=== PATIENT | female | born 1985 | race African-American/Black ===

== ENCOUNTER 2018-02-12 15:09 | Emergency (ER) | payer MEDICAID, OTHER ==
[~2018-02-12] VITALS: Ht 162.6 cm; Wt 70.0 kg
[2018-02-12] MEDS ORDERED: ONDANSETRON HCL 4MG/2ML INJ IV STA (15:36)
[2018-02-12] MEDS ORDERED: FAMOTIDINE 20MG/2ML VIAL IV STA (15:36)
[2018-02-12] MEDS ORDERED: SODIUM CHLORIDE 0.9% 1,000 ML IV ONE (15:36)
[2018-02-12 17:09] LABS: CHLORIDE 107 mEq/L (98-107)
[2018-02-12 17:10] LABS: BASOPHILS % 0.6 % (0.0-2.0); EOSINOPHILS % 0.4 % (0.0-5.0); HEMATOCRIT. 41.3 % (36.0-48.0); HEMOGLOBIN. 13.1 g/dL (12.0-16.0); LYMPHOCYTES % 26.7 % (20.0-50.0); MEAN CORPUSCULAR HEMOGLOBIN 23.3 pg (28.0-32.0); MEAN CORPUSCULAR VOLUME 73.7 fL (81.0-99.0); MEAN PLATELET VOLUME 8.5 fl (7.4-10.4); MONOCYTES % 10.4 % (2.0-8.0); NEUTROPHILS % 61.9 % (40.0-76.0); PLATELET 205 x1000/uL (130-400); PROTHROMBIN TIME 10.2 sec (9.1-11.1); RED BLOOD CELL COUNT 5.61 mill/uL (4.2-5.4); RED CELL DISTRIBUTION WIDTH 14.9 % (11.6-14.6)
[2018-02-12 17:16] LABS: ETHANOL BLOOD < 10 mg/dL
[2018-02-12 17:30] LABS: HCG SCREEN POSITIVE
[2018-02-12 18:00] LABS: CLARITY URINE CLOUDY (CLEAR); COLOR URINE YELLOW (YELLOW); KETONES URINE 1+ (NEGATIVE); LEUKOCYTE ESTERASE URINE 2+ (NEGATIVE); NITRITE URINE NEGATIVE (NEGATIVE); OCCULT BLOOD URINE NEGATIVE (NEGATIVE); PH URINE 5.5 (4.5-8.0); PROTEIN URINE NEGATIVE (NEGATIVE); SPECIFIC GRAVITY URINE 1.018 (1.005-1.030); UROBILINOGEN URINE 0.2 E.U./dL (0.2-1.0)
[2018-02-12 18:08] LABS: *BARBITURATES SCREEN URINE NEGATIVE (NEGATIVE); *BENZODIAZEPINES SCREEN URINE NEGATIVE (NEGATIVE); *COCAINE SCREEN URINE NEGATIVE (NEGATIVE); METHADONE URINE SCREEN NEGATIVE (NEGATIVE); OPIATES URINE SCREEN NEGATIVE (NEGATIVE)
[2018-02-12 18:10] LABS: PHENCYCLIDINE URINE SCREEN NEGATIVE (NEGATIVE)
[2018-02-12 18:24] LABS: *AMPHETAMINES SCREEN URINE PRESUMTIVE POSITIVE (NEGATIVE); CANNABINOID URINE SCREEN PRESUMTIVE POSITIVE (NEGATIVE)
[2018-02-12 19:10] VITALS: BP 156/108
== END 2018-02-12 19:39 | disposition home or self-care (01) ==
LOC: ER 15:09
DX: O20.0 Threatened abortion (principal); O23.41 Unspecified infection of urinary tract in pregnancy, first trimester; O26.891 Other specified pregnancy related conditions, first trimester; F15.10 Other stimulant abuse, uncomplicated; F12.10 Cannabis abuse, uncomplicated; R07.9 Chest pain, unspecified; F17.200 Nicotine dependence, unspecified, uncomplicated; Z3A.01 Less than 8 weeks gestation of pregnancy
CPT/HCPCS: 36415; 76801; 76817; 80053; 80305; 81003; 83605; 83690; 84702; 84703; 85025; 85610; 96361; 96374; 96375; 99284; G0482; J2405; J3490; J7030